=== PATIENT | female | born 1965 | race Caucasian/White ===

== ENCOUNTER → 2019-04-09 07:38 | Outpatient (CLI) | payer BC, SELFPAY ==
--- NOTE | ~2019-04-09 | XR_ITS ---
EXAMINATION: XR shoulder RT min 2V DATE: 04/09/2019 08:03 INDICATION: Right shoulder arthritis. Right neck and shoulder pain. TECHNIQUE: 4 views of right shoulder were obtained. COMPARISON: None. FINDINGS: Bone alignment is normal. No fracture. Glenohumeral joint is normal. There is mild acromioc lavicular joint osteoarthritis. IMPRESSION: 1. Mild right acromioclavicular joint osteoarthritis. Reviewed, dictated and finalized at location A. OCOMMUNICATIONS TECHNICIAN
--- NOTE | ~2019-04-09 | XR_ITS ---
XR cervical spine 4-5V 04/09/2019 08:03 Indication: Arthritis. Neck pain. Procedure: 4 view cervical spine Comparison: No prior studies for comparison. Findings: Vertebral body heights and disc spaces are preserved. No fracture or traumatic malalignment . No significant prevertebral soft tissue abnormality. Odontoid process within normal limits. Lung ap ices are normal. There are mild uncinate degenerative changes at C5-6. Impression: 1: Mild cervical spondylosis. Reviewed, dictated and finalized at location A. DRIER FEEDER Impression: 1: Mild cervical spondylosis.
== END ==
PROVIDERS: Visit Provider Internal Medicine
DX: M19.011 Primary osteoarthritis, right shoulder (principal); M47.892 Other spondylosis, cervical region
CPT/HCPCS: 72050; 73030

== ENCOUNTER → 2019-11-21 10:02 | Outpatient (CLI) | payer BC, SELFPAY ==
--- NOTE | ~2019-11-21 | MM_ITS ---
EXAMINATION: MM screening emilie BI w [place] HISTORY: Screening mammogram TECHNIQUE: Craniocaudal and mediolateral oblique 3-D tomosynthesis images were obtained and synthetic 2-D images were generated. CAD analysis was submitted and interpreted. COMPARISON: 06/29/2018 post-biopsy diagnostic right mammogram 05/23/2019.. BREAST PARENCHYMAL COMPOSITION: There are scattered areas of fibroglandular density. FINDINGS: Possible 9 mm opacity is suggested in the upper right breast on MLO view. Otherwise there is no evidence of suspicious mass, calcification, or architectural distortion to sug gest malignancy in either breast. There has been no suspicious interval change. IMPRESSION: 1. Possible 9 mm mass in upper right breast. 2. Recommend diagnostic right mammogram, with ultrasound if required. BI-RADS Category 0: Incomplete: Needs additional imaging evaluation. Reviewed, dictated and finalized at location A.
== END ==
PROVIDERS: Visit Provider Family Medicine
DX: Z12.31 Encounter for screening mammogram for malignant neoplasm of breast (principal); R92.8 Other abnormal and inconclusive findings on diagnostic imaging of breast
CPT/HCPCS: 77063; 77067

== ENCOUNTER → 2019-12-12 07:40 | Outpatient (CLI) | payer BC, SELFPAY ==
--- NOTE | ~2019-12-12 | MMUS_ITS ---
EXAMINATION: MM diagnostic mammo unilat RT, US breast RT limited HISTORY: Follow-up right breast mass TECHNIQUE: Additional 3-D tomosynthesis images of the right breast were performed and synthetic 2-D i mages were generated. CAD analysis was submitted and interpreted. High resolution right breast ultras ound was performed. COMPARISON: Comparison to multiple prior studies sequentially, with oldest reviewed study dated 01/07. BREAST PARENCHYMAL COMPOSITION: BREAST PARENCHYMAL COMPOSITION: The breasts are heterogeneously dense, which may obscure small masses . FINDINGS: MAMMOGRAPHIC FINDINGS: There is an irregular shaped 1.6 x 0.7 cm mass in the upper inner quadrant of the right breast. There is an adjacent tissue marker. There are no suspicious calcifications. ULTRASOUND: Right breast ultrasound: At 2:00, 3 cm from the nipple, there is an irregular shaped hypoechoic mass measuring 1.2 x 0.8 x 0.7 cm with marginal vascularity. There is mixed posterior attenuation. IMPRESSION: 1. Irregular shaped 1.2 cm right breast mass at 2:00, 3 cm from the nipple. 2. Ultrasound-guided right breast biopsy recommended. BI-RADS category 4, suspicious findings. Reviewed, dictated and finalized at location A. IMPRESSION: 1. Irregular shaped 1.2 cm right breast mass at 2:00, 3 cm from the nipple. 2. Ultrasound-guided right breast biopsy recommended. BI-RADS category 4, suspicious findings.
== END ==
PROVIDERS: PCP Family Medicine; Visit Provider Physician Assistant
DX: R92.8 Other abnormal and inconclusive findings on diagnostic imaging of breast (principal); N63.12 Unspecified lump in the right breast, upper inner quadrant
CPT/HCPCS: 76642; 77065